=== PATIENT | female | born 1975 | race American Indian/Alaskan Native ===

== ENCOUNTER 2017-02-09 16:44 | Emergency (ER) | payer OTHER ==
[~2017-02-09] VITALS: Ht 154.9 cm; Wt 56.0 kg
[2017-02-09 16:49] VITALS: BP 110/71; PULSE 87; RESP 16; TEMP 98.2; O2SAT 100
[2017-02-09] MEDS ORDERED: NAPR250T PO (17:06)
[2017-02-09] MEDS ORDERED: Muscle relaxer PO (17:06)
--- NOTE | 2017-02-09 17:23 | PD ---
HPI . Paresthesias Chief Complaint: Numbness/Tingling Time Seen by Provider: 16:55 Travel History International Travel<30 days: No Contact w/Intl Traveler<30days: No Traveled to known affect area: No History of Present Illness HPI Chief complaint is paresthesias. Patient states that it started in the left lower extremity about a week ago. Yesterday, she developed symptoms in her lower extremity and both arms. She states that she has been taking a muscle relaxant and Naprosyn with no relief of her symptoms. She states that her symptoms are exacerbated by sitting. She complains with some associated mid back pain. She also complains with some scattered bruising. She denies fever. Her pain is currently rated 4/10. The patient has subsequently called the nurse back into the room the nurse feel of her hands. Her hands became very cold. The patient reports that hands and feet are very cold when she has the paresthesias. PFSH Past Medical History Medical History: Denies Significant Hx Tetanus Vaccination: > 5 Years Influenza Vaccination: No ?: Not LMP: 11/27/16, states irr. since January 2016 Past Surgical History Section: Yes (X's 2) Social History Alcohol Use: No Tobacco Use: No Substance Use: No Allergies-Medications (Allergen,Severity, Reaction): Coded Allergies: No Known Allergies (Unverified , 02/09/17) Reported Meds & Prescriptions Reported Meds & Active Scripts Active Prednisone (48) 10 mg tab Dose Pack (Prednisone) 10 Mg Dspk 10 Mg PO DIRECTED Reported [Muscle relaxer] 1 Tab PO DAILY PRN Review of Systems Except as stated in HPI: all other systems reviewed are Neg General / Constitutional: No: Fever, Chills Musculoskeletal: Positive: Myalgias Neurologic: Positive: Paresthesia Hematologic/Lymphatic: Positive: Easy Bruising Physical Exam Narrative GENERAL: Patient is awake and alert and in no acute distress. SKIN: Warm and dry. She has a couple of scattered bruises on her lower extremities. HEAD: Atraumatic. Normocephalic. EYES: Pupils equal and round. Extraocular movements are intact. ENT: No nasal bleeding or discharge. Mucous membranes pink and moist. NECK: Trachea midline. Neck is supple and nontender. CARDIOVASCULAR: Regular rate and rhythm. RESPIRATORY: No accessory muscle use. MUSCULOSKELETAL: No obvious deformities. No edema. NEUROLOGICAL: Awake and alert. No obvious cranial nerve deficits. Motor grossly within normal limits. Normal speech. Normal [id number] exam. Negative pronator drift. PSYCHIATRIC: Appropriate mood and affect; insight and judgment normal. Data Data Last Documented VS Vital Signs Date Time Temp Pulse Resp B/P Pulse Ox O2 Delivery O2 Flow Rate FiO2 02/09/17 16:49 98.2 87 16 110/71 100 Orders Complete Blood Count With Diff (02/09/17 17:07) Basic Metabolic Panel (Bmp) (02/09/17 17:07) Magnesium (Mg) (02/09/17 17:07) Westergren Sedimentation Rate (02/09/17 17:07) Labs Laboratory Tests Test 02/09/17 17:15 White Blood Count 6.0 TH/MM3 Red Blood Count 4.27 MIL/MM3 Hemoglobin 13.1 GM/DL Hematocrit 38.8 % Mean Corpuscular Volume 90.7 FL Mean Corpuscular Hemoglobin 30.6 PG Mean Corpuscular Hemoglobin 33.7 % Concent Red Cell Distribution Width 12.5 % Platelet Count 272 TH/MM3 Mean Platelet Volume 8.2 FL Neutrophils (%) (Auto) 55.2 % Lymphocytes (%) (Auto) 35.8 % Monocytes (%) (Auto) 6.4 % Eosinophils (%) (Auto) 1.6 % Basophils (%) (Auto) 1.0 % Neutrophils # (Auto) 3.3 TH/MM3 Lymphocytes # (Auto) 2.1 TH/MM3 Monocytes # (Auto) 0.4 TH/MM3 Eosinophils # (Auto) 0.1 TH/MM3 Basophils # (Auto) 0.1 TH/MM3 CBC Comment DIFF FINAL Differential Comment Erythrocyte Sedimentation Rate 5 mm/hr Sodium Level 141 MEQ/L Potassium Level 3.7 MEQ/L Chloride Level 104 MEQ/L Carbon Dioxide Level 29.1 MEQ/L Anion Gap 8 MEQ/L Blood Urea Nitrogen 10 MG/DL Creatinine 0.61 MG/DL Estimat Glomerular Filtration 107 ML/MIN Rate Random Glucose 99 MG/DL Calcium Level 9.0 MG/DL Magnesium Level 2.1 MG/DL [facility] Medical Decision Making Medical Screen Exam Complete: Yes Emergency Medical Condition: Yes Differential Diagnosis My differential diagnosis of paresthesias includes but is not limited to anxiety , radiculopathy, peripheral neuropathy, peripheral vascular disease, compartment syndrome. This could also be Raynaud's disease. Narrative Course Patient presents for the evaluation of paresthesias. Her paresthesias are not in congruent dermatomes. She has no hard neurological findings. CBC & BMP Diagram 02/09/17 17:15 Sedimentation rate is 5. Diagnosis Primary Impression: Paresthesias Patient Instructions: General Instructions, Paresthesia (ED), Raynaud Disease ( ED) Additional Instructions: Call your insurance company to see about getting a doctor. Then follow up with his doctor for further evaluation of possible Raynaud's disease Med/Other Pt SpecificInfo: Med Stopped Scripts Prednisone (48) 10 mg tab Dose Pack 10 Mg Dspk10 Mg PO DIRECTED #1 DSPK Ref 0 Prov:Alea Guevara MD 02/09/17 Disposition: 01 DISCHARGE HOME Condition: Stable Alea Guevara MD Feb 09, 2017 17:23
[2017-02-09 17:24] LABS: AUTOMATED NEUTROPHIL # 3.3 TH/MM3 (1.8-7.7); BASOPHIL # 0.1 TH/MM3 (0-0.2); EOSINOPHIL # 0.1 TH/MM3 (0-0.4); EOSINOPHIL % 1.6 % (0.0-4.0); HEMATOCRIT 38.8 % (35.0-46.0); HEMO FLAGS DIFF FINAL; LYMPH % 35.8 % (9.0-44.0); LYMPHOCYTE # 2.1 TH/MM3 (1.0-4.8); MEAN CELL VOLUME 90.7 FL (80.0-100.0); MEAN CORPUSCULAR HEMOGLOBIN 30.6 PG (27.0-34.0); MEAN CORPUSCULAR HGB CONC 33.7 % (32.0-36.0); MONO % 6.4 % (0.0-8.0); NEUT % 55.2 % (16.0-70.0); PLATELET COUNT 272 TH/MM3 (150-450); RED BLOOD COUNT 4.27 MIL/MM3 (4.00-5.30); RED CELL DISTRIBUTION WIDTH 12.5 % (11.6-17.2)
[2017-02-09 17:31] LABS: POTASSIUM 3.7 MEQ/L (3.5-5.1)
[2017-02-09 17:34] LABS: BICARBONATE 29.1 MEQ/L (21.0-32.0); MAGNESIUM 2.1 MG/DL (1.5-2.5)
[2017-02-09] MEDS ORDERED: PRED10PA2 PO (17:44)
[2017-02-09 18:30] VITALS: BP 114/76; PULSE 71; RESP 14; O2SAT 100
== END 2017-02-09 18:30 | disposition home or self-care (01) ==
LOC: PHED 16:44
DX: R20.2 Paresthesia of skin (principal); M54.6 Pain in thoracic spine; R23.8 Other skin changes; Z79.899 Other long term (current) drug therapy
CPT/HCPCS: 80048; 83735; 85025; 85652; 99283